=== PATIENT | male | born 2000 | race Caucasian/White ===

== ENCOUNTER 2021-03-22 21:28 | Emergency (ER) | payer SELFPAY ==
[~2021-03-22 21:28] MED LIST: AUGMENTIN 875-1 EACH PO; Bromphed DM PO; CLEOCIN HCL300 MG PO; DOXYCYCLINE HY100 MG PO; IBUPROFEN600 MG PO; IBUPROFEN800 MG PO; LODINE CAP 300300 MG PO
== END 2021-03-22 23:56 | disposition home or self-care (01) ==
LOC: ER1 21:28
DX: S61.211A Laceration without foreign body of left index finger without damage to nail, initial encounter (principal); F17.200 Nicotine dependence, unspecified, uncomplicated; W26.0XXA Contact with knife, initial encounter; Y92.009 Unspecified place in unspecified non-institutional (private) residence as the place of occurrence of the external cause; Z23 Encounter for immunization
CPT/HCPCS: 12002; 73140; 90471; 90715; 99283